=== PATIENT | male | born 1960 | race Caucasian/White ===

== ENCOUNTER 2017-10-25 18:54 | Emergency (ER) | payer OTHER, SELFPAY ==
[2017-10-25 18:59] VITALS: BP 122/73; PULSE 95; RESP 15; TEMP 36.5; O2SAT 95; BMI 28.3
--- NOTE | 2017-10-25 19:30 | DI.CT.S_ITS ---
PROCEDURE: CT FACIAL BONES WO CON INDICATIONS: fall, impact left orbit with swelling and pain TECHNIQUE: Noncontrast 2.5 mm thick axial images acquired from the mandible through the frontal sinuses, with coronal and sagittal reformatting. For radiation dose reduction, the following was used: automated exposure control, adjustment of mA and/or kV according to patient size. COMPARISON: [facility], CT, CT SINUS WITHOUT CONTRAST, 05/29/2017, 14:30. FINDINGS: Image quality: Excellent. Bones and teeth: Orbital weinberg are intact. Sinus weinberg show no fracture or deformity. Nasal bones and septum are intact. Visualized portions of the mandible demonstrate no fractures or subluxation. Zygomatic arches are intact. Pterygoid plates are intact. Visualized portions of the skull base and auditory canals are intact. There is slight irregular appearance of the left sphenoid bone. However, it appears unchanged from prior exam. Sinuses: Mucous retention cyst/polyp is present within the right maxillary sinus. Mastoid air cells are aerated. Soft tissues: Left periorbital soft tissue edema is present. Vascular: Visualized vascular structures appear normal in the absence of contrast. Bony vascular foramina and canals are intact. IMPRESSION: 1. Left periorbital soft tissue edema without visualized fracture. Dictated by: Sherry Carbajal M.D. on 10/25/2017 at 20:12 Approved by: Sherry Carbajal M.D. on 10/25/2017 at 20:15
--- NOTE | 2017-10-25 19:32 | ED.FALL ---
HPI - Fall <[facility] - Last Filed: 10/25/17 22:13> General Chief Complaint: Fall Stated Complaint: FALL HIT LEFT EYE,SWELLING Time Seen by Provider: 10/25/17 19:08 Source: patient and family Mode of arrival: ambulatory Limitations: no limitations History of Present Illness HPI Narrative: Patient states that he tripped and fell and hit his head on the sidewalk. Is worried that he broke a facial bone. States he broke his glasses and has swelling below his left eye. He did not lose consciousness, denies head or neck pain. Does complain of back pain but does not want worked up. Denies any numbness, tingling, confusion or altered mental status. Insists that he tripped and fell and did not pass out. Denies any vision problems. He does not take any blood thinners. Review of Systems <[facility] - Last Filed: 10/25/17 22:13> Review of Systems GENERAL: Denies chills, fatigue, malaise, fever, sweats. HEENT: See HPI RESPIRATORY: Denies dyspnea, cough, wheezing, hemoptysis, sputum. CARDIOVASCULAR: Denies chest pain, palpitations, orthopnea, edema, GASTROINTESTINAL: Denies nausea, vomiting, abdominal pain, diarrhea, constipation, melena. : Denies dysuria, frequency, incontinence, hematuria, urinary retention. MUSCULOSKELETAL: denies weakness, joint pain, or bony pain SKIN: See HPI NEUROLOGIC: Denies weakness, headache, numbness, change in speech, confusion, seizures, incoordination. PSYCHIATRIC: No concerning psychosocial issues. 12 point review of systems is negative except for those stated above Exam <[facility] - Last Filed: 10/25/17 22:13> Narrative Exam Narrative: GENERAL: This is a well-nourished, well-developed patient, in no distress at bedside HEAD: Atraumatic. Normocephalic. No temporal or scalp tenderness. Facial bones stable to palpation. EYES: Pupils equal round and reactive. Extraocular motions intact. No scleral icterus. No injection or drainage. ENT: Nose without bleeding, purulent drainage or septal hematoma. Throat without erythema, tonsillar hypertrophy or exudate. Uvula midline. Airway patent. NECK: Trachea midline. No JVD or lymphadenopathy. Supple, nontender, no meningeal signs. CARDIOVASCULAR: Regular rate and rhythm without murmurs, gallops, or rubs. RESPIRATORY: Clear to auscultation. Breath sounds equal bilaterally. No wheezes, rales, or rhonchi. GASTROINTESTINAL: Abdomen soft, non-tender, nondistended. No hepato-splenomegaly, or palpable masses. No guarding. EXTREMITIES: No clubbing, cyanosis, or edema. No joint tenderness, effusion, or edema noted. BACK: C-spine and spine Nontender without deformity or crepitance. No flank tenderness. Slight tenderness to left paraspinal muscles lumbar region. NEURO: AOx3. SKIN: Abrasion noticed below left eye. Swelling noted and ecchymosis below left eye. Initial Vital Signs Initial Vital Signs: Vital Signs Temperature 97.7 F 10/25/17 18:59 Pulse Rate 95 H 10/25/17 18:59 Respiratory Rate 15 10/25/17 18:59 Blood Pressure 122/73 H 10/25/17 18:59 Pulse Oximetry 95 10/25/17 18:59 <Chey Phelps DO - Last Filed: 10/26/17 03:17> Initial Vital Signs Initial Vital Signs: Vital Signs Temperature 97.7 F 10/25/17 18:59 Pulse Rate 95 H 10/25/17 18:59 Respiratory Rate 15 10/25/17 18:59 Blood Pressure 122/73 H 10/25/17 18:59 Pulse Oximetry 95 10/25/17 18:59 Course <NELLIE Villanueva-BC - Last Filed: 10/25/17 22:13> Hospital Course: Patient presented after a fall. Concern for orbital fracture. CT was ordered to rule out fracture which came back negative. Visual acuity was taken and patient was blind in right eye which she states is normal. Noted to have 20/70 vision in left eye. Patient states this is normal for him and declines further workup. He declined an ice pack but was given p.o. medications for pain. He also declined further workup of his back pain stating ???I know myself. ??? He stated he will follow up with his eye doctor if needed. Orders Ordered: ED Orders 10/25/17 19:30 CT facial bones wo con Stat Vital Signs - 8 hr 10/25/17 21:00 Pulse Rate 57 L Blood Pressure 138/76 H <Chey Phelps DO - Last Filed: 10/26/17 03:17> Orders Ordered: ED Orders 10/25/17 19:30 CT facial bones wo con Stat Vital Signs - 8 hr 10/25/17 21:00 Pulse Rate 57 L Blood Pressure 138/76 H MDM - Fall <NELLIE Villanueva-BC - Last Filed: 10/25/17 22:13> Imaging Data CT- Face: Radiologist's impression: CT Scan Report Signed Patient: Josue Begum MR#: [id number] : 1960 Acct:[id number] Age/Sex: 56 / M Date of Service: 10/25/17 Loc: ED Accession Number: [id number] Procedure: CT facial bones wo con Ordering Provider: Dina Silverio PROCEDURE: CT FACIAL BONES WO CON INDICATIONS: fall, impact left orbit with swelling and pain TECHNIQUE: Noncontrast 2.5 mm thick axial images acquired from the mandible through the frontal sinuses, with coronal and sagittal reformatting. For radiation dose reduction, the following was used: automated exposure control, adjustment of mA and/or kV according to patient size. COMPARISON: [facility], CT, CT SINUS WITHOUT CONTRAST, 05/29/2017, 14:30. FINDINGS: Image quality: Excellent. Bones and teeth: Orbital weinberg are intact. Sinus weinberg show no fracture or deformity. Nasal bones and septum are intact. Visualized portions of the mandible demonstrate no fractures or subluxation. Zygomatic arches are intact. Pterygoid plates are intact. Visualized portions of the skull base and auditory canals are intact. There is slight irregular appearance of the left sphenoid bone. However, it appears unchanged from prior exam. Sinuses: Mucous retention cyst/polyp is present within the right maxillary sinus. Mastoid air cells are aerated. Soft tissues: Left periorbital soft tissue edema is present. Vascular: Visualized vascular structures appear normal in the absence of contrast. Bony vascular foramina and canals are intact. IMPRESSION: 1. Left periorbital soft tissue edema without visualized fracture. Dictated by: Sherry Carbajal M.D. on 10/25/2017 at 20:12 Approved by: Sherry Carbajal M.D. on 10/25/2017 at 20:15 [facility] Narrative Medical decision making narrative: A CT of facial bones showed no fracture. Exam indicates contusion. Patient declined any further workup. States he will follow up with primary care or his admissions specialist as needed. Discharge Plan Departure Patient Disposition: Home, Self-Care Clinical Impression: Fall from ground level, Contusion Discharge Date/Time: 10/25/17 21:08 Interventions: ED Discharge Assessment Last Done: 10/25/17 21:00 Instructions: DI for Eye Contusion Activity Restrictions/Additional Instructions: CT shows no fracture of the facial bones. I suggest ice, [id number]-[id number] pain medications as needed. Follow up with primary care come back to the emergency department if you need to. <Chey Phelps, - Last Filed: 10/26/17 03:17> Cosign ED Attending Sulemaature Attestation: I was immediately available in the department for consultation. Documentation has been reviewed. I agree with assessment and plan.
[2017-10-25 21:00] VITALS: BP 138/76; PULSE 57
== END 2017-10-25 21:08 | disposition home or self-care (01) ==
PROVIDERS: Emergency Provider Nurse Practitioner Family
DX: S05.10XA Contusion of eyeball and orbital tissues, unspecified eye, initial encounter (principal); W19.XXXA Unspecified fall, initial encounter
CPT/HCPCS: 70486; 99283

== ENCOUNTER 2017-11-27 13:09 | Emergency (ER) | payer OTHER, SELFPAY ==
[2017-11-27 13:34] VITALS: BP 155/79; PULSE 70; RESP 16; TEMP 36.6; O2SAT 96; BMI 29.0
--- NOTE | 2017-11-27 14:26 | ED.UPPEXIN ---
HPI - Extremity Injury (Upper) General Chief Complaint: Extremity Injury, Upper Stated Complaint: CAT BITE RIGHT HAND Time Seen by Provider: 11/27/17 14:25 Source: patient Mode of arrival: ambulatory Limitations: no limitations History of Present Illness HPI narrative: 56-year-old male who states that he was both bit and scratched by his personal cat that is up-to-date on its shots. He states that the bite happened yesterday. He states that he woke up today with swelling and redness on the back of his right hand. He came to the emergency department for evaluation. He states that he did clean it out with both soap and water and hydrogen peroxide yesterday. Related Data Home Medications Medication Instructions Recorded Confirmed allopurinol 1 tab PO BID 11/27/17 11/27/17 colchicine 0.6 mg PO BID 11/27/17 11/27/17 Previous Rx's Medication Instructions Recorded doxycycline hyclate 100 mg PO BID #14 tab 11/27/17 Allergies Allergy/AdvReac Type Severity Reaction Status Date / Time aspirin Allergy Verified 11/27/17 13:33 niacin Allergy Verified 11/27/17 13:33 Penicillins Allergy Verified 11/27/17 13:33 Sulfa (Sulfonamide Allergy Verified 11/27/17 13:33 Antibiotics) Review of Systems Constitutional Denies fatigue and Denies fever(s) Musculoskeletal Comments: Pain in the back of the right hand with limited flexion and extension secondary to the pain and swelling Integumentary/Breasts Reports lesions and Reports wounds (One puncture wound on the back of his right) Neurologic Comments: No numbness and tingling right upper extremity Endocrine Denies fatigue Hematologic/Lymphatic Denies easy bleeding and Denies easy bruising [facility] Social History Smoking Status: Never smoker Exam Initial Vital Signs Initial Vital Signs: Vital Signs Temperature 97.9 F 11/27/17 13:34 Pulse Rate 70 11/27/17 13:34 Respiratory Rate 16 11/27/17 13:34 Blood Pressure 155/79 H 11/27/17 13:34 Pulse Oximetry 96 11/27/17 13:34 Cardio Pulses: radial pulses present Skin Other: Patient with 1 wound on the dorsum of his hand radial aspect and another wound at the base of his thumb on the radial aspect of the dorsum of the hand. No active bleeding. No purulence. Does have a surrounding area of erythema that extends just proximally to the wrist and extends distally to just proximal of the MCP joints on the dorsum of the hand. Does not extend to the palmar aspect of the hand. Is warm to the touch. Neuro Other: Sensation intact to light touch right upper extremity Extrem Other: Right elbow unremarkable patient does have full range of motion of his right wrist if he fights to the pain however does have somewhat limited range of motion because of the pain. Course Vital Signs - 8 hr 11/27/17 13:34 11/27/17 14:39 Temperature 97.9 F 97.9 F Pulse Rate 70 74 Respiratory Rate 16 16 Blood Pressure 155/79 H Blood Pressure [Left Arm] 131/78 H Pulse Oximetry 96 97 MDM - Extremity Injury (Upper) MDM Narrative Medical decision making narrative: Patient with a bite from his CT of the back of his right hand. I did discuss the potential for doing an x-ray to evaluate for a foreign body however the patient declined this. Does have signs and symptoms that are concerning for an infection. Patient is allergic to penicillin. Will be placed on doxycycline. He was given care instructions and return precautions. He expressed understanding and agreement with plan Discharge Plan Departure Patient Disposition: Home, Self-Care Clinical Impression: Cat bite of hand Discharge Date/Time: 11/27/17 15:08 Interventions: ED Discharge Assessment Last Done: 11/27/17 15:09 Instructions: DI for Cat Bite Activity Restrictions/Additional Instructions: Take the medication as directed. You can wash your hand like normal. Return to the emergency department for any new symptoms, worsening symptoms, worsening pain, worsening redness, fevers, or any other concerning symptoms Prescriptions: New doxycycline hyclate 100 mg tablet 100 mg PO BID Qty: 14 RF: 0 No Action allopurinol 100 mg tablet 1 tab PO BID RF: 0 colchicine 0.6 mg tablet 0.6 mg PO BID RF: 0
[2017-11-27 14:39] VITALS: BP 131/78; PULSE 74; RESP 16; TEMP 36.6; O2SAT 97
== END 2017-11-27 15:08 | disposition home or self-care (01) ==
PROVIDERS: Emergency Provider Emergency Medicine
DX: S61.451A Open bite of right hand, initial encounter (principal); W55.01XA Bitten by cat, initial encounter
CPT/HCPCS: 99282

== ENCOUNTER → 2018-07-22 11:53 | Outpatient (CLI) | payer OTHER, SELFPAY ==
--- NOTE | 2018-07-22 | DI.MRI.S_ITS ---
PROCEDURE: MR SHOULDER LT WO CON INDICATIONS: TENDNITIS TECHNIQUE: Noncontrast oblique coronal T2 fast spin echo with fat saturation, oblique sagittal T1 spin echo and T2 fast spin echo with fat saturation, axial T1 spin echo and T2 fast spin echo with fat saturation through the shoulder. COMPARISON: None. FINDINGS: Image quality: Excellent. Rotator cuff: There is a low grade, bursal surface tear of the supraspinatus tendon at the humeral attachment (series 8, image 10). The infraspinatus, and subscapularis tendons appear intact throughout. The supraspinatous and infraspinatus tendons are thickened with increased internal signal compatible with moderate tendinosis. Sagittal images demonstrate no muscle atrophy. Bones and bursae: Postsurgical changes consistent with resection of the distal clavicle and acromion noted. No bone marrow contusions or fractures. Moderate to severe acromioclavicular joint osteoarthritic degenerative changes including loss of articular cartilage and subchondral cyst formation noted. Mild synovial thickening noted in the super aspect of the glenohumeral joint compatible with synovitis. Small glenohumeral joint effusion. Small amount of subacromial-subdeltoid bursal fluid is present. Capsule and soft tissues: There is a tear involving the superior and posterior labrum. In the absence of intra-articular contrast, the glenohumeral ligaments appear intact. The long head of the biceps tendon demonstrates normal location. The long head of the biceps tendon is thickened with increased internal signal compatible with moderate tendinosis. The rotator interval appears normal, without fibrosis. The coracohumeral ligament is normal in thickness. IMPRESSION: 1. Low-grade, partial, bursal surface tear of the supraspinous tendon. 2. Moderate supraspinatus, infraspinatus and long head of biceps tendinosis. 3. Tear of the posterior and superior labrum. 4. Glenohumeral joint osteoarthritis. 5. Postsurgical changes. Dictated by: Angi Borja MD, PhD on 07/22/2018 at 16:56 Approved by: Angi Borja MD, PhD on 07/23/2018 at 11:20
== END ==
PROVIDERS: Visit Provider Orthopaedic Surgery
DX: M75.22 Bicipital tendinitis, left shoulder (principal); M75.112 Incomplete rotator cuff tear or rupture of left shoulder, not specified as traumatic; S43.492A Other sprain of left shoulder joint, initial encounter; M19.012 Primary osteoarthritis, left shoulder
CPT/HCPCS: 73221

== ENCOUNTER → 2021-05-16 12:24 | Outpatient (CLI) | payer OTHER, SELFPAY ==
--- NOTE | 2021-05-16 | DI.RAD.S_ITS ---
PROCEDURE: XR LUMBAR SPINE 2-3V INDICATIONS: ELBOW PAIN AND LOW BACK PAIN TECHNIQUE: 3 views of the lumbar spine were acquired. COMPARISON: None. FINDINGS: Bones: 5 [id number] vertebrae are present. There is normal bony alignment. No vertebral body compression fractures. No suspicious bony lesions. Disc space narrowing and sclerotic facet joints noted in the lower lumbar spine. No lytic or blastic lesion. Soft tissues: Overlying bowel gas pattern is normal. No suspicious soft tissue calcifications. The retroperitoneal vascular clips present. IMPRESSION: Lower lumbar spine degenerative disc disease and arthropathy Approved by: De Martinez M.D. on 05/16/2021 at 18:10
--- NOTE | 2021-05-16 | DI.RAD.S_ITS ---
PROCEDURE: XR ELBOW RT MIN 3V INDICATIONS: ELBOW PAIN AND LOW BACK PAIN TECHNIQUE: 3 views of the elbow were acquired. COMPARISON: None. FINDINGS: Bones: No fractures or dislocations. No suspicious bony lesions. Soft tissues: No elbow joint effusion. No suspicious soft tissue calcifications. IMPRESSION: Normal study. Dictated by: Aj Quick M.D. on 05/16/2021 at 15:14 Approved by: Aj Quick M.D. on 05/16/2021 at 15:14
== END ==
PROVIDERS: PCP Internal Medicine; Referring Provider Internal Medicine; Visit Provider Internal Medicine
DX: M51.36 Other intervertebral disc degeneration, lumbar region (principal); M47.816 Spondylosis without myelopathy or radiculopathy, lumbar region; M25.521 Pain in right elbow; M54.50 Low back pain, unspecified
CPT/HCPCS: 72100; 73080

== ENCOUNTER → 2021-08-22 13:48 | Outpatient (CLI) | payer OTHER, SELFPAY ==
--- NOTE | 2021-08-22 | DI.US.S_ITS ---
PROCEDURE: US ABD AORTA ANEURYSM SCREEN INDICATIONS: AAA SCREEN TECHNIQUE: Real time scanning was performed of the aorta and iliac arteries, with image documentation. COMPARISON: [facility], MR, MR LUMBAR SPINE WITH/WITHOUT CONTRAST, 11/21/2019, 14:08. FINDINGS: Aorta: Proximal aortic diameter measures 2 cm. Mid-aorta measures 2 cm. Distal aortic diameter is 2.8 cm. Iliac arteries: Right common iliac artery measures 1.2 cm. Left common iliac artery measures 1.1 cm. IMPRESSION: Distal abdominal aortic ectasia, without herb aneurysm. Dictated by: Delvin Church M.D. on 08/22/2021 at 13:29 Approved by: Delvin Church M.D. on 08/22/2021 at 13:30
== END ==
PROVIDERS: PCP Internal Medicine; Referring Provider Internal Medicine; Visit Provider Internal Medicine
DX: Z13.6 Encounter for screening for cardiovascular disorders (principal); I77.811 Abdominal aortic ectasia
CPT/HCPCS: 76706

== ENCOUNTER → 2023-05-16 12:28 | Outpatient (CLI) | payer OTHER, SELFPAY ==
[2023-05-16 13:11] LABS: Add Manual Diff / Slide Review NO; Basophils Absolute Auto 0 /uL (0-100); Basophils Percent Auto 0.6 % (0-2); Eosinophils Absolute Auto 100 /uL (0-450); Eosinophils Percent Auto 1.8 % (2-4); Hematocrit 43.3 % (41-53); Hemoglobin 14.8 g/dL (13.5-17.5); Lymphocytes Absolute Auto 1800 /uL (1100-4500); Lymphocytes Percent Auto 24.7 % (25-40); Mean Corpuscular HGB Conc 34.3 % (30-36); Mean Corpuscular Volume 93.4 fL (80-100); Monocytes Absolute Auto 600 /uL (0-900); Monocytes Percent Auto 8.4 % (3-14); Neutrophils Absolute Auto 4700 /uL (1500-7000); Neutrophils Percent Auto 64.5 % (50-75); Platelet Count 200 X10^3/uL (150-400); Red Blood Cell Count 4.63 X10^6/uL (4.5-5.9); Red Cell Distribution Width 14.7 % (11.6-14.8); White Blood Cell Count 7.3 X10^3/uL (4.5-11.0)
[2023-05-16 13:18] LABS: Hemoglobin A1C% w Est Avg Glu 5.5 % (4.0-6.0)
[2023-05-16 13:36] LABS: BUN Creatinine Ratio 18.4 (6-22); Blood Urea Nitrogen 19 mg/dL (9-20); Calcium 9.7 mg/dL (8.4-10.2); Carbon Dioxide 28 mmol/L (22-32); Chloride 106 mmol/L (98-107); Estimated Glomerular Filt Rate > 60 mL/min (>60); Glucose 104 mg/dL (80-110); HEMOLYSIS < 15 (0-50); Potassium 3.9 mmol/L (3.4-5.1); Sodium 141 mmol/L (137-145)
== END ==
PROVIDERS: PCP Internal Medicine; Referring Provider Orthopaedic Surgery Foot and Ankle Surgery; Visit Provider Orthopaedic Surgery Foot and Ankle Surgery
DX: Z01.818 Encounter for other preprocedural examination (principal); R73.9 Hyperglycemia, unspecified; Z01.812 Encounter for preprocedural laboratory examination
CPT/HCPCS: 36415; 80048; 83036; 85025; 93005; 93010

== ENCOUNTER 2023-07-11 09:17 | Day surgery (SDC) | payer OTHER, SELFPAY ==
[2023-07-03 08:40] VITALS: BMI 26.6
[2023-07-11 09:38] VITALS: BP 163/81; PULSE 54; RESP 16; TEMP 36.4; O2SAT 96; BMI 26.6
[2023-07-11] MEDS: ACETAMINOPHEN 325 MG TABLET 1000 MG PO (10:00)
[2023-07-11] MEDS: LACTATED RINGERS 1,000 ML 42 ML IV (10:00)
--- NOTE | 2023-07-11 10:50 | PM.PREOP ---
Pre-operative Note Interval Note History & Physical reviewed/Exam performed by Physician: Yes Changes to H&P: No
--- NOTE | 2023-07-11 11:02 | P.OP_ITS ---
Operative Date/Time/Diagnoses Date of procedure: 07/11/23 Time of procedure: 11:30 Pre-op diagnosis: Right knee arthritis Post-op diagnosis: same Procedure & Clinicians Procedure: Total knee arthroplasty, right CPT code 01771 Robotic assisted knee replacement, computer navigation [id number] During the operation, the services of a physician surgical forceps fabricator were medically indicated and necessary to provide the exposure of the operative site for the surgical procedure and to maintain the limb in a proper position to carry out the operation safely and efficiently. Without a qualified commercial lines account assistant being present this would extended the operative procedure and made the procedure technically more difficult to perform. Same procedure as scheduled: Yes Indications: The patient is a 62-year-old male with end-stage yjqt-[id number]-dvch knee arthritis. The patient has a significant right knee varus knee arthritis. They have failed conservative treatment with activity modifications, injections, physical therapy and bracing. They has been indicated for total knee replacement. The risks and benefits of the procedure have been discussed with the patient even opportunity to ask questions. The risks of surgery include but are not limited to infection, fracture, loosening, persistence of pain, damage to nerves and blood vessels, need for additional procedures, DVT, PE, cardiopulmonary complications and . The patient expressed a thorough understanding of the risks and benefits of surgery and has elected to proceed. Consent was signed in the office. Surgeon: Fanny Bender Insulation Inspector: Daiana Carbaajl Anesthesia Type: General, Peripheral nerve block and Local Operative Notes Findings: End-stage varus knee arthritis, right Closure Type: primary Specimen(s): none sent Prosthetic devices, grafts, tissues, transplants, or devices: Rae and Nephew journey II BCS total knee arthroplasty Femur Tibia Poly Patella Procedure in detail: Patient was seen in the preoperative area where the patient and site of surgery were identified in the operative knee was marked informed consent confirmed. This was the right knee. Patient received the appropriate preoperative antibiotics this was 900 mg of clindamycin for severe penicillin allergy. And other preoperative medications and was taken to the operating room placed on operating table in the supine position. Spinal anesthetic were administered. The operative extremity was then prepped and draped in the standard sterile fashion with a nonsterile tourniquet high on the thigh. Patient was placed on the green foam bolsters. A lateral post was placed at the level of the proximal thigh /trochanter area as a lateral post. Formal time-out procedure was performed confirming the patient's side and site of surgery and administration of appropriate preoperative antibiotics and implants were in the room accounted for. All were in agreement. Patient received a preoperative dose of tranexamic acid and then a 2nd dose at tourniquet release Patient was prepped and draped in the standard sterile fashion and the foot was placed into the leg stephen. This was taken into high flexion and the incision was marked out over the anterior knee to the level of the medial tubercle tubercle. The Esmarch was then used for exsanguination and the tourniquet was inflated to 250 mmHg. Was made through the skin and subcutaneous tissue in high flexion this was then brought down into 30? of flexion for the medial parapatellar arthrotomy. A marker pen was used to nikhil the arthrotomy site for later repair. Joint fluid was evacuated. The anterior osteophytes and soft tissues were removed. Routine medial release was initially made along the medial proximal tibia with Bovie. The patella was 1st cut using the saw sized and prepped and then subluxed throughout the case and protected. The leg was then taken into extension and the patella was everted and the patella was cut to accommodate the patellar button. This was sized to a XX mm button for a XX mm thickness to recreate the original dimensions of the patella. Poly was removed and the protector replaced and the patella was subluxed and the knee was taken back up into flexion and attention was returned to the femur. Then the rotational landmarks of Whitesides line and the trans epicondylar axis were marked on the femur with electrocautery. ACL and PCL were released. Then the Cori robotic pins were placed into the femur and tibia and the race set up. Landmarks were established and the robotic planning was commenced. Plan was developed and improved and adjusted as necessary to create a balanced knee 1-2 mm throughout the arc of motion. Plan was satisfactory the bur was used to remove the distal femur then the 5 in 1 cutting block was applied complete the femur cuts. Attention was then turned to the tibia and the tibial resection was made in accordance with the robotic planning. The trials were placed. And the femoral notch was cut a standard fashion using Reamer then slap hammer. The knee was trialed and the checked. Knee was balanced in flexion extension. Range of motion 0-135 degrees was obtained. The rotation femoral trial was marked Bovie on the bone and checked with a long kevin. The tibia was then finished with a drill and flange cut and then The trial implants were removed. Then in extension the posterior capsule was injected with a mixture of 40 mL of 0.25% Marcaine and 20 mL of Exparel care to avoid excessive injection posterior laterally. The remainder of this was saved for the capsule and subcutaneous tissue and placed during cement curing. The wound and bone was irrigated with pulsatile lavage. This was then dried with a sponge. The components were verified and opened and the cement was mixed. Cement was applied to the components and then to the bone then the tibia was cemented in place 1st followed by the femur then the patella. Excess cement was removed. With care looking around the back of the knee. Remainder of the injection was injected around the capsule. trial poly was placed back in the leg was placed into extension for the patellar cementing. After this was cured approximately 15 minutes later and the dilute Betadine solution was placed for at least 3 minutes in the wound this was then irrigated out and the final poly was placed. This was a XX mm poly. The tourniquet was released hemostasis was achieved. Final 1g of tranexamic acid was given IV at the time of tourniquet release. The capsule was closed with 1. Ethibond suture. Followed by a running Quill stitch. Computer navigation robotic tracker sites were closed with nylon. Subcutaneous layer was closed with 3-0 Vicryl suture. Skin was closed with a running V lock suture Stratafix Monocryl type suture and Dermabond. An Aquacel dressing was placed . An Raza wrap was applied. Anesthetic was terminated the patient was woken from anesthesia and taken to recovery room in good condition. There no immediate complications from this procedure. The patient will be maintained on a standard total knee replacement protocol with weight-bearing as tolerated.
--- NOTE | 2023-07-11 11:12 | SUR.PREOP ---
Block start time [1120] . Monitoring initiated and maintained throughout procedure. Oxygen and medications given per anesthesiologist instructions. Patient remained stable throughout procedure, no adverse reactions noted. Block end time [1123].
== END 2023-07-11 13:22 | disposition home or self-care (01) ==
LOC: OR 09:18 → AC 09:21
PROVIDERS: PCP Internal Medicine; Referring Provider Internal Medicine; Visit Provider Orthopaedic Surgery Foot and Ankle Surgery
DX: M17.11 Unilateral primary osteoarthritis, right knee (principal); Z53.09 Procedure and treatment not carried out because of other contraindication
CPT/HCPCS: 27447; 64450; J2250; J2704; J3010

== ENCOUNTER 2023-08-01 08:51 | Day surgery (SDC) | payer OTHER, SELFPAY ==
[2023-08-01] VITALS (16 sets, daily range): BP systolic 98–155; BP diastolic 46–91; PULSE 60–97; RESP 10–18; TEMP 35.9–37.1; O2SAT 90–96; BMI 26.6
--- NOTE | 2023-08-01 08:47 | DI.RAD.S_ITS ---
PROCEDURE: XR KNEE RT 1TO2V INDICATIONS: TKA TECHNIQUE: 2 view(s) of the knee acquired. COMPARISON: None. FINDINGS: Bones: Patient is status post knee joint arthroplasty. Hardware components are in expected positions. Visualized bony structures are intact. Soft tissues: Overlying postoperative changes are noted. IMPRESSION: Expected post-operative appearance of a knee arthroplasty. Dictated by: Marcella Gamez M.D. on 08/01/2023 at 14:47 Approved by: Marcella Gamez M.D. on 08/01/2023 at 14:47
[2023-08-01] MEDS: ACETAMINOPHEN 325 MG TABLET 975 MG PO (09:25)
[2023-08-01] MEDS: LACTATED RINGERS 1,000 ML 42 ML IV ×2 (09:25→12:22)
[2023-08-01] MEDS: ALBUTEROL/IPRATROPIUM 3 ML AMPUL INH (10:06)
--- NOTE | 2023-08-01 10:34 | P.HP_ITS ---
History of Present Illness History of Present Illness Date Patient Seen: 08/01/23 Time Patient Seen: 10:34 Chief complaint: Right TKA *OPB* Narrative: The patient is a 62-year-old male that has end-stage right knee arthritis. He is failed conservative treatment with bracing, physical therapy injections and oral medications. He is indicated for total knee arthroplasty and presents for total knee arthroplasty today. He does not have diabetes he does not smoke does thinners 7 allergy to aspirin so he is planned for postoperative DVT prophylaxis with Eliquis. He does have a history of asthma [facility] Medical History Embryonal carcinoma Embryonal carcinoma PTSD (post-traumatic stress disorder) Easy bruisability Psoriasis Osteoarthritis Enlarged prostate Testicular cancer (~1978) HLD (hyperlipidemia) HTN (hypertension) KELLY (obstructive sleep apnea) Asthma Surgical History Hx of shoulder surgery H/O nasal septoplasty Hx of discectomy Hx of shoulder surgery History of repair of left rotator cuff History of repair of right rotator cuff Hx of tonsillectomy S/P radical unilateral orchiectomy (~1978) Hx of bilateral cataract extraction Social History household members: spouse Smoking Status: Former smoker alcohol intake: former Meds Home Medications and Allergies Home Medications Medication Instructions Recorded Confirmed Type allopurinol 100 mg tablet 1 tab PO BID PRN Gout 11/27/17 08/01/23 History colchicine 0.6 mg tablet 0.6 mg PO BID PRN Gout Flare 11/27/17 08/01/23 History amlodipine 5 mg tablet 5 mg PO DAILY 07/03/23 08/01/23 History atorvastatin 10 mg tablet 10 mg PO BEDTIME 07/03/23 08/01/23 History lisinopril 20 mg tablet 20 mg PO DAILY 07/03/23 08/01/23 History tamsulosin 0.4 mg capsule 0.4 mg PO BEDTIME 07/03/23 08/01/23 History albuterol 90 mcg/actuation aerosol See Rx Instructions .Route 07/11/23 08/01/23 History inhaler .COMPLEX PRN asthma Allergies Allergy/AdvReac Type Severity Reaction Status Date / Time aspirin Allergy Severe Anaphylaxis Verified 07/11/23 09:55 Penicillins Allergy Severe Anaphylaxis Verified 07/11/23 09:55 Sulfa (Sulfonamide Allergy Severe Anaphylaxis Verified 07/11/23 09:55 Antibiotics) niacin AdvReac Severe Red, Verified 07/11/23 09:55 flushing, I just cook NSAIDS (Non-Steroidal AdvReac Severe Gastrointestinal Verified 07/11/23 09:55 Anti-Inflamma Upset Review of Systems Review of Systems ROS: Yes All systems reviewed with the patient and are negative except as otherwise documented Exam Vital Signs (past 8 hours): - 08/01/23 09:32 Temperature 97.9 F Pulse Rate 61 Respiratory Rate 16 Blood Pressure 139/81 Pulse Oximetry 96 Oxygen Delivery Method Room Air Oxygen Delivery Method Room Air Narrative Exam Narrative: The patient is alert oriented no acute distress Heart regular rate and rhythm Lungs clear to auscultation Right lower extremity demonstrates varus alignment with tenderness along the medial compartment range of motion 2-125. Grossly stable to varus and valgus stress test good quadriceps tone. No erythema no effusion. Dorsiflexion plantar flexion 5/5. Calf is soft. Palpable dorsalis pedis pulse. Assessment & Plan Assessment and plan (1) Arthritis of knee, right: Status: Acute Plan Patient has end-stage right knee arthritis. He is failed conservative treatment is indicated for a total knee arthroplasty. The risks benefits and alternatives to the procedure were discussed with the patient in detail and he is elected to proceed. Preoperative laboratories and EKG have been reviewed and are appropriate. He will utilize Eliquis for postoperative DVT prophylaxis. He has normal kidney function. He is received prescriptions for oxycodone, Zofran, MiraLax and Eliquis Informed consent was signed. Time Spent With Patient Time with patient: less than 30 minutes Quality VTE Deep Vein Thrombosis/Pulmonary Embolism Present on Admission: No
--- NOTE | 2023-08-01 10:48 | SUR.PREOP ---
Block start time [1047] . Monitoring initiated and maintained throughout procedure. Oxygen and medications given per anesthesiologist instructions. Patient remained stable throughout procedure, no adverse reactions noted. Block end time [1051].
[2023-08-01] MEDS: CEFAZOLIN 2 GM/100 ML PREMIX 100 ML IV ×2 (11:02→18:45)
[2023-08-01] MEDS: TRANEXAMIC ACID 1,000 MG VIAL 1000 MG INJ (11:25)
--- NOTE | 2023-08-01 11:34 | SUR.OPER ---
Supine on padded OR bed. Pillow under head, arms secured on padded armboards <90 degree abduction. Safety belt across torso. Non-operative leg secured with tape over blanket over lower leg. Operative leg secured in SHERWIN positioner. Foam padded brace at thigh of operative leg.
[2023-08-01] MEDS: BUPIVACAINE 0.25% (PF) 60 ML, EPINEPHrine 0.3 MG INJ (12:12)
[2023-08-01] MEDS: BUPIVACAINE LIPOSOME 266 MG/20 ML VIAL INJ (12:59)
--- NOTE | 2023-08-01 13:36 | P.OP_ITS ---
Operative Date/Time/Diagnoses Date of procedure: 08/01/23 Time of procedure: 11:30 Pre-op diagnosis: Right knee arthritis M17.11 Post-op diagnosis: same Procedure & Clinicians Procedure: Total knee arthroplasty, right CPT code 77803 Robotic assisted knee replacement surgery S2900 Imageless navigation for knee replacement 28281 Same procedure as scheduled: Yes Indications: The patient is a 62-year-old with end-stage [id number] knee arthritis. The patient has a varus knee arthritis. They have failed conservative treatment with activity modifications, injections, physical therapy and bracing. They has been indicated for total knee replacement. The risks and benefits of the procedure have been discussed with the patient even opportunity to ask questions. The risks of surgery include but are not limited to infection, malunion, nonunion, fracture, loosening, persistence of pain, damage to nerves and blood vessels, need for additional procedures, DVT, PE, cardiopulmonary complications and . The patient expressed a thorough understanding of the risks and benefits of surgery and has elected to proceed. Consent was signed in the office. During the operation the services of physician surgical nurse practitioner were medically indicated and necessary to provide the exposure of the operative site for the surgical procedure and to maintain the limb in a proper position to carry out the procedure safely and efficiently. Without a qualified assistant cross country coach being present this would extend the operative procedure and would have made the procedure more technically difficult to perform. The surgical nurse practitioner was medically necessary for the proper positioning, retraction and manipulation of the limb, proper exposure, and manipulation of the tissue for implantation implants and closure. Surgeon: Fanny Bender Shuffle Board Operator: Moustapha Lu Anesthesia Type: General, Peripheral nerve block and Local Operative Notes Findings: Varus knee arthritis full-thickness cartilage loss medial compartment degenerative meniscal tears and tricompartmental osteophytes. Grade 3 cartilage wear patellofemoral joint and lateral compartment Closure Type: primary Prosthetic devices, grafts, tissues, transplants, or devices: Rae and [employer]hew journey 2 bCS Femur size 7 cobalt chromium Tibia size 6 Patella 35 x 7.5 Poly 9 mm Estimated Blood Loss (mL): 100 Blood products transfused: none Tourniquet time (min): 80 Procedure in detail: Patient was seen in the preoperative area where the patient and site of surgery were identified in the operative knee was marked informed consent confirmed. This was the right knee. Patient received the appropriate preoperative antibiotics this was 2 g of Ancef. A regional block was placed by the anesthesia team for postoperative pain control. And other preoperative medications and was taken to the operating room placed on operating table in the supine position. Spinal anesthetic were administered. The operative extremity was then prepped and draped in the standard sterile fashion with a nonsterile tourniquet high on the thigh. Patient was placed on the green foam bolsters. A lateral post was placed at the level of the proximal thigh /trochanter area as a lateral post. Formal time-out procedure was performed confirming the patient's side and site of surgery and administration of appropriate preoperative antibiotics and implants were in the room accounted for. All were in agreement. Patient received a preoperative dose of tranexamic acid and then a 2nd dose at tourniquet release Patient was prepped and draped in the standard sterile fashion and the foot was placed into the leg stephen. This was taken into high flexion and the incision was marked out over the anterior knee to the level of the medial tubercle tubercle. The Esmarch was then used for exsanguination and the tourniquet was inflated to 250 mmHg. Was made through the skin and subcutaneous tissue in high flexion this was then brought down into 30? of flexion for the medial p arapatellar arthrotomy. A marker pen was used to nikhil the arthrotomy site for later repair. Joint fluid was evacuated. The anterior osteophytes and soft tissues were removed. Routine medial release was initially made along the medial proximal tibia with Bovie. The patella was 1st cut using the saw sized and prepped and then subluxed throughout the case and protected. The leg was then taken into extension and the patella was everted and the patella was cut to accommodate the patellar button. This was sized to a 35 mm button for a 7.5 mm thickness to recreate the original dimensions of the patella. Poly was removed and the protector replaced and the patella was subluxed and the knee was taken back up into flexion and attention was returned to the femur. Then the rotational landmarks of Whitesides line and the trans epicondylar axis were marked on the femur with electrocautery. ACL and PCL were released. Then the Cori robotic pins were placed into the femur and tibia and the race set up. Landmarks were established and the robotic planning was commenced. Plan was developed and improved and adjusted as necessary to create a balanced knee. Starting alignment with 2? of varus. This was corrected to 0? varus with the ligament balancing and utilizing a 4 degree external rotation of the femur. Incising adjustments to avoid notching. And obtaining flexion and extension g aps 1-2 mm Once the plan was satisfactory the bur was used to remove the distal femur then the 5 in 1 cutting block was applied complete the femur cuts. Attention was then turned to the tibia and the tibial resection was made in accordance with the robotic planning. The trials were placed. And the femoral notch was cut a standard fashion using Reamer then slap hammer. The knee was trialed and the checked. Knee was balanced in flexion extension. Planned alignment was obtained planned gap balance achieved. Range of motion 0-135 degrees was obtained. The rotation femoral trial was marked Bovie on the bone and checked with a long kevin. The tibia was then finished with a drill and flange cut and then The trial implants were removed. Then in extension the posterior capsule was injected with a mixture of 40 mL of 0.25% Marcaine and 20 mL of Exparel care to avoid excessive injection posterior laterally. The remainder of this was saved for the capsule and subcutaneous tissue and placed during cement curing. The wound and bone was irrigated with pulsatile lavage. This was then dried with a sponge. The components were verified and opened and the cement was mixed. Final components were selected size 7 femur, size 6 tibia 35 x 7 .5 patella Cement was applied to the components and then to the bone then the tibia was cemented in place 1st followed by the femur then the patella. Excess cement was removed. With care looking around the back of the knee. Remainder of the injection was injected around the capsule. trial poly was placed back in the leg was placed into extension for the patellar cementing. After this was cured approximately 15 minutes later and the dilute Betadine solution was placed for at least 3 minutes in the wound this was then irrigated out and the final poly was placed. This was a 9 mm poly. The tourniquet was released hemostasis was achieved. Final 1g of tranexamic acid was given IV at the time of tourniquet release. The capsule was closed with 1. Ethibond suture. Followed by a running Quill stitch. Subcutaneous layer was closed with 3-0 Vicryl suture. Skin was closed with a running V lock suture Stratafix Monocryl type suture and Dermabond. An Aquacel dressing was placed . An Raza wrap was applied. Anesthetic was terminated the patient was woken from anesthesia and taken to recovery room in good condition. There no immediate complications from this procedure. The patient will be maintained on a standard total knee replacement protocol with weight-bearing as tolerated. Complications: none Post-operative Condition: stable Disposition: PACU Plan for aftercare: Full weight-bearing, range of motion knee immediately. We will use Eliquis for DVT prophylaxis for 12 days. Follow up in 2 weeks for wound check with physician assistant cross country coach then in 6 weeks with the operating surgeon for new x-rays. We will start physical therapy outpatient in 1 week.
[2023-08-01] MEDS: LACTATED RINGERS 1,000 ML 100 ML IV (14:34)
[2023-08-01] MEDS: OXYCODONE IR 5 MG TABLET PO (14:38)
--- NOTE | 2023-08-01 15:18 | PC.NURSE ---
Pt arrived from PACU at 1425, VSS on 3L NC, c/o 5/10 pain to R knee, medicated per AUG. Raza wrap dressing to R knee c/d/i. CMS +, no n\t. Lung sounds CTA, bowel sounds hypoactive. Pt oriented to room and call light. Bed in low position, call light within reach, SCDs on, bed alarm activated.
[2023-08-01] MEDS: ONDANSETRON 4 MG/2 ML INJ IV (15:29)
[2023-08-01] MEDS: ACETAMINOPHEN 325 MG TABLET 650 MG PO ×2 (15:44→20:46)
--- NOTE | 2023-08-01 15:55 | PT.IIE ---
Current Diagnoses Unilateral primary osteoarthritis, right knee (08/01/23) Surgery Performed Operation Date: 08/01/23 10:45 Actual Procedures p Total Knee Arthroplasty - Robot(Right) - Fanny Bender MD Surgical History (Last Reviewed 08/01/23 @ 10:34 by Fanny Bender MD) H/O nasal septoplasty History of repair of left rotator cuff History of repair of right rotator cuff Hx of bilateral cataract extraction Hx of discectomy Hx of shoulder surgery Hx of shoulder surgery Hx of tonsillectomy S/P radical unilateral orchiectomy (~1978) Medical History (Last Reviewed 08/01/23 @ 10:34 by Fanny Bender MD) Asthma Easy bruisability Embryonal carcinoma Embryonal carcinoma Enlarged prostate HLD (hyperlipidemia) HTN (hypertension) KELLY (obstructive sleep apnea) Osteoarthritis Psoriasis PTSD (post-traumatic stress disorder) Testicular cancer (~1978) Physical Therapy Inpatient Evaluation/Re-Eval M1 PT/OT-IP Prior Functional Status Start: 08/01/23 16:43 Freq: NEEDED Status: Active Protocol: Document 08/01/23 15:55 AB (Rec: 08/01/23 16:56 AB [id number]) Medical Review Prior Functional Status Medical History Reviewed Yes Communication able to make needs known Mobility and Gait pt stated that he was independent with all mobities and ambulation without AD Social History Household Members spouse Living Arrangements House Number of Floors (Floors) One Floor Number of Stairs To Enter/Railing? 1 step to enter Home Environment High Toilet,Tub/Shower Home Equipment Front Wheel Walker,Four Wheel Walker,Straight Cane M2 PT-IP Current Condition Start: 08/01/23 16:43 Freq: NEEDED Status: Active Protocol: Document 08/01/23 15:55 AB (Rec: 08/01/23 16:56 AB [id number]) Physical Therapy Current Condition Current Condition Evaluation Date 08/01/23 Treatment Diagnosis s/p R TKA; difficulty in walking Onset Date 08/01/23 M3 PT-IP Subjective Start: 08/01/23 16:43 Freq: NEEDED Status: Active Protocol: Document 08/01/23 15:55 AB (Rec: 08/01/23 16:56 AB [id number]) Subjective Physical Therapy Visit Type Type Initial Evaluation Visit Start Time 15:55 Visit Stop Time 16:45 Number of ELECTRIC SERVICEMAN Visits 0 Physical Therapy Visit Comments Patient Comments agreeable to do PT Therapy Pain Assessment Pain When Pain Assessed At Rest Pain Present Pain Present Pain Reported Location Right Knee Intensity 5 Scale Used Numeric (0 - 10) Pain Behaviors Guarding Pain Management Techniques Distraction,Modification of Treatment,Re-positioning, Timing of Activity with Medications M4 PT-IP Mobility and Gait Start: 08/01/23 16:43 Freq: NEEDED Status: Active Protocol: Document 08/01/23 15:55 AB (Rec: 08/01/23 16:56 AB [id number]) PT-Bed Mobility Assessment Supine to Sit Supine to Sit Standby Assistance PT-Transfer Assessment Sit to and From Stand Sit to and from Stand Contact Guard Assistance, Minimal Assistance,1 Person Assistance,Use of Upper Extremities Equipment Transfer Assistive Device Gait Belt,Front Wheeled Walker Orthotic/Prosthetic Devices or Brace: No Transfers Transfer Destination Toilet Transfer Technique ambulated Transfer Ability Level of Assist Contact Guard Assistance, Minimal Assistance,1 Person Assistance,Use of Upper Extremities Comments Mobility Comments pt supine in bed and spouse in room. pt agreeable to do PT. obtained PLOF and home setup. post-op folder provided and reviewed contents. educated on HEP. BP in supine: 128/73. O2 sat with 1L/min O2: 95-97% . O2 sat at RA varies from 87 -95%. increases with deep breathing. spouse stated that pt has asthma and KELLY. pt completed supine to sit SBA . able to sit on EOB SBA. O2 with 1L/min with activity: 98 -100%. pt completed sit to stand min A and cues and ambulated in room ~ 20 ft CGA to min A. increase unsteadiness towards end of ambulation and requires cues for R quads activation. pt sat on EOB. requested to use the toilet. completed sit to stand from EOB CGA and ambulated to the toilet using FWW CGA to min A. pt wanting to use the toilet for awhile. call light positioned next to pt and instructed to call for assistance when ready. informed nurse. caregiver training set up for tomorrow at 9 am with spouse. Gait Assessment Gait Gait Assistance Required: Contact Guard Assist,Minimum Assistance Distance (Feet) 20 Able to Maintain Weight Bearing Status Yes During Gait Assistive Devices Assistive Device Gait Belt,Front Wheeled Walker Orthotic/Prosthetic Devices or Brace: No Gait Deviations General Gait Pattern Antalgic,Decreased Stride Length,Decreased Feet Clearance Factors Limiting Gait Function Factors Limiting Gait Function Decreased Activity Tolerance, Decreased Strength,Difficulty Following Directions,Limited Range of Motion,Pain,Poor Balance,Poor Safety Awareness, Respiratory Distress PT-Balance Assessment Sitting Balance and Reactions Dynamic Sitting Balance Ability Good Standing Balance and Reactions Static Standing Balance Ability Fair Dynamic Standing Balance Ability Fair Device Used FWW M5 PT-IP Objective Assessments Start: 08/01/23 16:43 Freq: NEEDED Status: Active Protocol: Document 08/01/23 15:55 AB (Rec: 08/01/23 16:56 AB [id number]) Orientation Orientation/Cognition Level of Alertness Alert Orientation Name,Age Safety Awareness Decreased Safety Awareness Memory Description No Deficits Noted Comments pt alert but sleepy Gross Range of Motion Lower Extremity ROM Assessment Right Impaired Impairments R knee flexion: ~ 100 deg R knee extension: ~ 20 deg less to 0 Strength Lower Extremity Strength Assessment Left Impaired Hip 4/5 Knee 3+/5 Coordination Assessment Gross Coordination Gross Coordination WNL Sensation Assessment Sensation Gross Sensation WNL Muscle Tone Muscle Tone WNL Yes M6 PT-IP Treatment Start: 08/01/23 16:43 Freq: NEEDED Status: Active Protocol: Document 08/01/23 15:55 AB (Rec: 08/01/23 16:56 AB [id number]) Physical Therapy Treatment Exercises Exercises Heel Slides Education Education Provided Precautions,Weight Bearing Status,Post-Op Packet,Safety M7 PT-IP Assessment and Plan Start: 08/01/23 16:43 Freq: NEEDED Status: Active Protocol: Document 08/01/23 15:55 AB (Rec: 08/01/23 16:56 AB [id number]) PT Summary Assessment and Plan Potential Rehabilitation Potential Fair Status of Condition at Evaluation Evolving Summary Impairments Pain,ROM,Strength,Balance, Coordination,Sensation,Tone, Cognition,Bed Mobility, Transfers,Gait,Activity Tolerance Assessment Summary pt is a 62 y/o M s/p R TKA POD 0. pt is WBAT on RLE. pt requiring CGA to min A with transfers and ambulation using FWW. pt O2 sat at RA inconsistent from 87% to 95% with cues for deep breathing. pt is alert but is sleepy affecting safety awareness. caregiver training set up for tomorrow at 9 am. will continue to assess progress. Goals Bed Mobility Goal Independent Transfer Goal Independent,Front Wheeled Walker Gait Goal Independent,Front Wheel Walker Gait Distance 200 Other Goals improve transfers and ambulation using LRAD ~ 300 ft mod I up/down 1 step using FWW/LRAD mod I Days to Meet Goals 5 Frequency of Treatment Frequency Of Treatment Twice a Day Treatment Plan Physical Therapy Treatment Plan Bed Mobility Training,Transfer Training,Gait Training, Therapeutic Exercise,Balance Retraining,Post Op Education, Discharge Planning,Hot or Cold Pack,Neuromuscular Re-ed, Coordination Retraining,Manual Therapy Weight Bearing Status Weight Bearing Status Weight Bear as Tolerated Allowed Weight Bearing Amount (enter % RLE WBAT or #) (%) Recommendations To Nursing Amount of Assist Needed 1 Person Assist Discharge Recommendations PT Discharge Recommendations Home with Assistance, Outpatient PT Transportation Needs at Discharge Private Vehicle
[2023-08-01] MEDS: OXYCODONE IR 10 MG TABLET PO (19:45)
[2023-08-01] MEDS: DOCUSATE 100 MG CAPSULE PO (20:44)
[2023-08-01] MEDS: ATORVASTATIN 20 MG TABLET 10 MG PO (20:44)
[2023-08-01] MEDS: CALCIUM CARBONATE 500 MG TAB PO (20:47)
[2023-08-02] MEDS: OXYCODONE IR 10 MG TABLET PO ×2 (00:16→10:24)
[2023-08-02] MEDS: CEFAZOLIN 2 GM/100 ML PREMIX 100 ML IV (02:06)
[2023-08-02] MEDS: ACETAMINOPHEN 325 MG TABLET 650 MG PO ×2 (02:06→08:44)
[2023-08-02] MEDS: LACTATED RINGERS 1,000 ML 100 ML IV (04:38)
--- NOTE | 2023-08-02 05:17 | PC.NURSE ---
cnc machinist 2nd shift RN note pt A&O x4, up with SBY assist with walker, c/o pain to R knee post surgery, VSS, afebrile, PPPx4, CMS intact, lungs clear O2 sats >92% on RA, abd soft with BS, BM overnight, pt c/o of fullness and pain to his bladder, unable to fully empty when voiding, PV residuals >500cc, straight cath done at 2130 for large amt clear yellow urine, at 0300 pt still unable to void, PVR >600, pt requested to have a catheter placed for the night so he can sleep, r/c placed and large amt urine emptied, prn pain meds with effect, dsg and cristhian wrap to R knee intact, pt doing exercises in bed, c/o acid reflux, called and order for TUMs with effect, call cam within reach, bed alarm on
[2023-08-02 05:48] LABS: Hematocrit 40.1 % (41-53); Hemoglobin 13.6 g/dL (13.5-17.5)
[2023-08-02] MEDS: TAMSULOSIN 0.4 MG CAPSULE PO (07:48)
--- NOTE | 2023-08-02 07:57 | P.DS_ITS ---
History of Present Illness History of Present Illness Chief complaint: Right TKA *OPB* Narrative: Josue is a pleasant 62-year-old male who is postop day #1 s/p right total knee arthroplasty by Dr. Bender. Patient reports overall he is feeling well and looking forward to being discharged to home today. Reports he was able to get up and walk around the hallways yesterday and pain has been well controlled with the oral pain medication. Patient lives at home with family who are willing and able to aid in his recovery during the immediate postop period. No stairs at home. Patient was unable to urinate last night and was therefore straight cathed. He then was able to void a small amount but his PVD was greater than 600 and therefore a Peña catheter was placed and is still in place now. Has outpatient physical therapy scheduled with our [address] [place] [address] office. His postop prescriptions at home already. Denies chest pain, shortness of breath, nausea, vomiting, fever, chills. Operative Date/Time/Diagnoses Date of procedure: 08/01/23 Time of procedure: 11:30 Pre-op diagnosis: Right knee arthritis M17.11 Post-op diagnosis: same Procedure & Clinicians Procedure: Total knee arthroplasty, right CPT code 72400 Robotic assisted knee replacement surgery [id number] Imageless navigation for knee replacement [id number] Same procedure as scheduled: Yes Surgeon: Fanny Bender Substance Addiction Coordinator: Moustapha Lu Anesthesia Type: General, Peripheral nerve block and Local Discharge Providers Provider Discharge Date: 08/02/23 Primary care physician: Yue Mena MD Consults: 08/01/23 08:47 Consult to Anesthesiology Routine Comment: Consulting Provider: Anesthesiologist Reason for consultation: Regional block for post operative pain control Has provider been notified: No 08/01/23 14:24 Consult to Discharge Planning Routine Comment: Consult to Occupational Therapy Evaluate & Treat Comment: Physician Instructions: Evaluate and treat Consult to Physical Therapy Evaluate & Treat Comment: Physician Instructions: postop TKA protocol Discharge provider: Daiana Carbajal PA-C Summary Hospital Course Discharge Diagnosis: Right knee osteoarthritis s/P right total knee arthroplasty Hospital Course: Hospital course complicated by acute urinary retention s/p orthopedic procedure Exam Vital Signs (past 8 hours): Oxygen Delivery Method Room Air Oxygen Flow Rate 0 Narrative Exam Narrative: Patient is sleeping comfortably when I entered into the room today but was easily aroused. Const General: cooperative, healthy appearing and comfortable Resp Effort & Inspection: normal respiratory effort and able to speak in complete sentences Cardio Rate: regular rate Skin Other: Clean and dry Aquacel dressing over the right anterior knee. Raza bandage wrapped around Aquacel. SCDs in place. Neuro General: patient alert, patient awake and patient oriented x3 Other: Sensation intact throughout bilateral lower extremities. Extrem Other: Grossly normal alignment, moderate right knee effusion. 5/5 strength with DF, PF, EHL. Right Knee AROM 3-90. Sensation intact throughout the right lower extremity. Brisk capillary refill. Psych Appearance: grossly normal Speech and Movement: speech and movement normal Objective Labs 08/02/23 04:55 Labs: Laboratory Results - last 24 hr 08/02/23 04:55 Hgb 13.6 Hct 40.1 L PFSH Medical History Embryonal carcinoma Embryonal carcinoma PTSD (post-traumatic stress disorder) Easy bruisability Psoriasis Osteoarthritis Enlarged prostate Testicular cancer (~1978) HLD (hyperlipidemia) HTN (hypertension) KELLY (obstructive sleep apnea) Asthma Surgical History Hx of shoulder surgery H/O nasal septoplasty Hx of discectomy Hx of shoulder surgery History of repair of left rotator cuff History of repair of right rotator cuff Hx of tonsillectomy S/P radical unilateral orchiectomy (~1978) Hx of bilateral cataract extraction Social History household members: spouse Smoking Status: Former smoker alcohol intake: former Discharge Assessment & Plan Assessment and Plan Assessment: Stable status post right TKA Plan of Treatment: Flomax ordered for patient. We will remove Peña catheter and await voiding trial prior to d/c. If the patient is able to void on his own and pass physical therapy the patient can be discharged home today. 1) Continue multimodal pain management. Ice to the knee for additional pain control. Eliquis 2.5 mg twice daily x2 weeks to prevent blood clots. 2) Continue to work on range of motion strengthening with outpatient PT. Weightbearing as tolerated, progress activities as tolerated. 3) Remove the Raza wrap 48 hours after surgery. Keep Aquacel dressing underneath in place until postoperative follow-up office visit. Okay to shower over Aquacel dressing. No soaking or submerging the incision site and no topical ointments or creams to the incision site for approximately 4-6 weeks. Please call the office if dressing becomes wet, soiled, or saturated. 4) Follow-up as scheduled at [facility] in 2 weeks. Discharge Plan Discharge Plan Patient Disposition: Home Discharge orders & Medications Discharge Orders: Discharge (Order); Ordered 08/02/23 Ordered By: Daiana Carbajal Prescriptions: Continued allopurinol 100 mg tablet 1 tab PO BID PRN (Reason: Gout) colchicine 0.6 mg tablet 0.6 mg PO BID PRN (Reason: Gout Flare) atorvastatin 10 mg Tablet 10 mg PO BEDTIME lisinopril 20 mg Tablet 20 mg PO DAILY amlodipine 5 mg Tablet 5 mg PO DAILY tamsulosin 0.4 mg Capsule 0.4 mg PO BEDTIME albuterol 90 mcg/actuation Aerosol See Rx Instructions .ROUTE .COMPLEX PRN (Reason: asthma) Rx Instructions: prn for asthma Follow up/Referrals: Fanny Bender MD [Physician] - (Follow-up as scheduled for 2 week postop appointment) Yue Mena MD [Primary Care Provider] - Diet/Activity/Treatments Diet: Diet as Tolerated Activity: Weightbear as tolerated, ice 20 minutes an hour while awake. Work on knee range of motion full extension and flexion. Other treatments: Medications: -Eliquis 2.5 mg twice daily x2 weeks to prevent blood clots. -OTC Tylenol 500 mg 1 tablet every 4 hours as needed for pain/fever. Max 6 tablets per day. (take scheduled every 4-6 hours for the first few days to week after schedule to help stay on top of your pain) -Oxycodone 5 mg take 1-2 tablets (5-10mg) every 4 hours as needed for moderate- severe pain (narcotic pain medication). (maximum dose for very severe pain would be 3 pills (15mg) every 3 hours) -ondansetron 4mg - 1 tab every 8 hours as needed for nausea -As needed medications: -Ducolax and /or MiraLax as needed for constipation from narcotic pain medications. -Pepcid AC as needed for stomach upset (usually from aspirin or ibuprofen). Dressing/Wound care: -Remove the Raza wrap 48 hours after surgery. -Keep Aquacel dressing in place until postoperative follow-up office visit. -Okay to shower. Keep wound out of direct water stream. No soaking or submerging until all the scabs fall off (approximately 4-6 weeks). -No lotions, ointments, or scar creams directly to the incision until the wound is healed (4-6 weeks), -Please call the office if dressing becomes wet, soiled, or saturated. Activities: -Weight-bearing as tolerated. Use front wheeled walker, and progress to cane when safe. -Continue with home exercises as directed by your physical therapist. (work on getting your leg. knee fully straight and bending knee as well- motion after knee replacement is very important) -should have outpatient Physical Therapy visits set up to start within 1 week after surgery -Elevate if you have significant swelling in your lower leg. (A wedge pillow is easiest.) -Ice your incision as needed for pain/inflammation/swelling. Protect your skin with a folded pillowcase. -Incentive Spirometer (breathing device from hospital): 5-10xs every hour while awake for the first 1-2 weeks. Follow-up: -Follow-up with your surgeon or PA in the office in 10-14 days after surgery. -Follow-up with your surgeon 6 weeks postoperatively. Contact the office if you have any of the following: ? Painful swelling or numbness ? Unrelenting pain ? Fever (over 101?- it is normal to have a low grade fever for the first day or two following surgery) or chills ? Redness around the incisions ? Color changes ? Continuous bleeding or drainage from the incision (a small amount is expected) ? Excessive nausea or vomiting ? Difficulty breathing If you have an emergency that requires immediate attention such as shortness of breath or chest pain, call 911 or proceed to the nearest emergency room. [facility]: [phone] Pain Medications: It is the policy of [facility] that narcotic medications will only be refilled during office hours. Additionally, due to the alarming rate of narcotic pain medication abuse/dependence, it has become necessary for physician practices to closely manage patient use of prescription narcotic pain relievers, such as Vicodin ([place]), Percocet, and Oxycodone products. Narcotic pain management in the postoperative period may not exceed 6 weeks. If narcotic pain management is required beyond 90 days, then a referral to a Chronic Pain Specialist will be made. If a request for a medication prescription of refill has been made, the physician must review your chart prior to authorizing the request. Please be patient with office staff. If you call during patient hours, your call may not be returned until the end of the day. Skin/Wound/Dressing Care Report to your healthcare provider any signs of infection, such as:: chills, fever, night sweats, increased pain, unusual drainage and unusual redness Visit Report/Discharge Packet Instructions: DI for Knee Replacement, DI for Prescription Opioid Use Stand Alone Forms: Patient Portal/API Discharge Data Primary Care Provider: Yue Mena Attending Provider: Fanny Bender VTE Deep Vein Thrombosis/Pulmonary Embolism Present on Admission: No
[2023-08-02] MEDS: DOCUSATE 100 MG CAPSULE PO (08:37)
[2023-08-02] MEDS: APIXABAN 5 MG TABLET 2.5 MG PO (08:38)
[2023-08-02 08:40] VITALS: BP 144/72; PULSE 88
[2023-08-02] MEDS: lisinopriL 20 MG TABLET PO (08:40)
[2023-08-02] MEDS: AMLODIPINE 5 MG TABLET PO (08:41)
--- NOTE | 2023-08-02 09:00 | PT.IPTN ---
Current Diagnoses Unilateral primary osteoarthritis, right knee (08/01/23) Surgery Performed Operation Date: 08/01/23 10:45 Actual Procedures p Total Knee Arthroplasty - Robot(Right) - Fanny Bender MD Physical Therapy Treatment Note M2 PT-IP Current Condition Start: 08/01/23 16:43 Freq: NEEDED Status: Active Protocol: Document 08/01/23 15:55 AB (Rec: 08/01/23 16:56 AB [id number]) Physical Therapy Current Condition Current Condition Evaluation Date 08/01/23 Treatment Diagnosis s/p R TKA; difficulty in walking Onset Date 08/01/23 M3 PT-IP Subjective Start: 08/01/23 16:43 Freq: NEEDED Status: Active Protocol: Document 08/02/23 09:33 TS (Rec: 08/02/23 09:43 TS [id number]) Subjective Physical Therapy Visit Type Type Treatment Note Visit Start Time 09:00 Visit Stop Time 09:28 Number of 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 Therapy Pain Assessment Pain When Pain Assessed At Rest Pain Present Pain Present Pain Reported M4 PT-IP Mobility and Gait Start: 08/01/23 16:43 Freq: NEEDED Status: Active Protocol: Document 08/02/23 09:33 TS (Rec: 08/02/23 09:43 TS [id number]) PT-Bed Mobility Assessment Supine to Sit Supine to Sit Standby Assistance Scooting Scooting to Edge of Bed Standby Assistance PT-Transfer Assessment Sit to and From Stand Sit to and from Stand Standby Assistance,Use of Upper Extremities Equipment Transfer Assistive Device Gait Belt,Front Wheeled Walker Orthotic/Prosthetic Devices or Brace: No Comments Mobility Comments Supine to sit SBA with BUE support from a flat bed. STS with FWW SBA, pt demonstrates good carryover of sequencing. He ambulated in hallway ~150' SBA with step to gait, requires standing rest breaks due to pain. He performed steps x2 with FWW on platform step CGA, pt required cues for step sequencing. Spouse entered room after pt was resting in chair. Spouse performed donning of gait belt and was eudcated on stair and gait training. Pt was left in chair all needs met. Gait Assessment Gait Gait Assistance Required: Standby Assistance Distance (Feet) 150 Able to Maintain Weight Bearing Status Yes During Gait Assistive Devices Assistive Device Gait Belt,Front Wheeled Walker Orthotic/Prosthetic Devices or Brace: No Gait Deviations General Gait Pattern Antalgic,Decreased Stride Length,Decreased Feet Clearance Factors Limiting Gait Function Factors Limiting Gait Function Decreased Activity Tolerance, Decreased Strength,Difficulty Following Directions,Limited Range of Motion,Pain,Poor Balance,Poor Safety Awareness, Respiratory Distress Comments Gait Comments See mobility comments Stair Climbing Assessment Evaluation Level of Assist On Stairs Contact Guard Assistance,1 Person Assistance Devices Stair Climbing Assistive Devices Front Wheel Walker Technique/Endurance Stair Climbing Direction Ascend and Descend Stair Climbing Technique Step to Step Number of Steps Climbed 2 Comments Stair Climbing Comments See mobility comments PT-Balance Assessment Sitting Balance and Reactions Static Sitting Balance Ability Good Dynamic Sitting Balance Ability Good Standing Balance and Reactions Static Standing Balance Ability Fair Dynamic Standing Balance Ability Fair Device Used FWW M5 PT-IP Objective Assessments Start: 08/01/23 16:43 Freq: NEEDED Status: Active Protocol: Document 08/01/23 15:55 AB (Rec: 08/01/23 16:56 AB [id number]) Orientation Orientation/Cognition Level of Alertness Alert Orientation Name,Age Safety Awareness Decreased Safety Awareness Memory Description No Deficits Noted Comments pt alert but sleepy Gross Range of Motion Lower Extremity ROM Assessment Right Impaired Impairments R knee flexion: ~ 100 deg R knee extension: ~ 20 deg less to 0 Strength Lower Extremity Strength Assessment Left Impaired Hip 4/5 Knee 3+/5 Coordination Assessment Gross Coordination Gross Coordination WNL Sensation Assessment Sensation Gross Sensation WNL Muscle Tone Muscle Tone WNL Yes M6 PT-IP Treatment Start: 08/01/23 16:43 Freq: NEEDED Status: Active Protocol: Document 08/02/23 09:33 TS (Rec: 08/02/23 09:43 TS [id number]) Physical Therapy Treatment Education Education Provided Precautions,Weight Bearing Status,Post-Op Packet,Safety M7 PT-IP Assessment and Plan Start: 08/01/23 16:43 Freq: NEEDED Status: Active Protocol: Document 08/02/23 09:33 TS (Rec: 08/02/23 09:43 TS [id number]) PT Summary Assessment and Plan Potential Rehabilitation Potential Good Summary Impairments Pain,ROM,Strength,Balance, Coordination,Sensation,Tone, Cognition,Bed Mobility, Transfers,Gait,Activity Tolerance Progress Towards Goals Progressing Toward Goals Assessment Summary Josue is making good progress with his mobility. He is SBA for all bed mobility and STS with use of FWW. He progressed his gait to ~150'SBA with step to gait and use of FWW. He performed stairs with FWW x2 on platform step CGA, he had no buckling or LOB. Spouse was educated on gait belt, stair and gait training. PT is recommending home with assist and outpatient PT. Goals Bed Mobility Goal Independent Transfer Goal Independent,Front Wheeled Walker Gait Goal Independent,Front Wheel Walker Gait Distance 200 Other Goals improve transfers and ambulation using LRAD ~ 300 ft mod I up/down 1 step using FWW/LRAD mod I Days to Meet Goals 5 Frequency of Treatment Frequency Of Treatment Twice a Day Treatment Plan Physical Therapy Treatment Plan Bed Mobility Training,Transfer Training,Gait Training, Therapeutic Exercise,Balance Retraining,Post Op Education, Discharge Planning,Hot or Cold Pack,Neuromuscular Re-ed, Coordination Retraining,Manual Therapy Weight Bearing Status Weight Bearing Status Weight Bear as Tolerated Allowed Weight Bearing Amount (enter % RLE WBAT or #) (%) Recommendations To Nursing Amount of Assist Needed Standby Assistance Discharge Recommendations PT Discharge Recommendations Home with Assistance, Outpatient PT Transportation Needs at Discharge Private Vehicle
[2023-08-02 09:18] VITALS: BP 144/72; PULSE 62; RESP 16; TEMP 36.3; O2SAT 97
--- NOTE | 2023-08-02 10:14 | OT.IP.EVAL ---
Current Diagnoses Unilateral primary osteoarthritis, right knee (08/01/23) Surgery Performed Operation Date: 08/01/23 10:45 Actual Procedures p Total Knee Arthroplasty - Robot(Right) - Fanny Bender MD Past Medical History (Last Reviewed 08/01/23 @ 10:34 by Fanny Bender MD) Asthma Easy bruisability Embryonal carcinoma Embryonal carcinoma Enlarged prostate HLD (hyperlipidemia) HTN (hypertension) KELLY (obstructive sleep apnea) Osteoarthritis Psoriasis PTSD (post-traumatic stress disorder) Testicular cancer (~1978) Surgical History (Last Reviewed 08/01/23 @ 10:34 by Fanny Bender MD) H/O nasal septoplasty History of repair of left rotator cuff History of repair of right rotator cuff Hx of bilateral cataract extraction Hx of discectomy Hx of shoulder surgery Hx of shoulder surgery Hx of tonsillectomy S/P radical unilateral orchiectomy (~1978) Occupational Therapy Inpatient Evaluation/Re-Eval M1 PT/OT-IP Prior Functional Status Start: 08/02/23 10:26 Freq: NEEDED Status: Active Protocol: Document 08/02/23 10:26 [facility] (Rec: 08/02/23 10:39 [facility] [id number]) Medical Review Prior Functional Status Medical History Reviewed Yes Communication able to make needs known Mobility and Gait pt stated that he was independent with all mobilities and ambulation without AD Activities of Daily Living and IADL's Pt able to do his ADl and IADL needs but had pain. Social History Household Members spouse Living Arrangements House Number of Floors (Floors) One Floor Number of Stairs To Enter/Railing? 1 step to enter Home Environment High Toilet,Tub/Shower Home Equipment Front Wheel Walker,Four Wheel Walker,Straight Cane M2 OT-IP Current Condition Start: 08/02/23 10:26 Freq: Status: Active Protocol: Document 08/02/23 10:26 [facility] (Rec: 08/02/23 10:39 [facility] [id number]) Occupational Therapy Current Condition Current Condition Evaluation Date 08/02/23 Treatment Diagnosis S/P R TKA Diagnosis Onset Date 08/01/23 M3 OT- IP Subjective and Pain Start: 08/02/23 10:26 Freq: Status: Active Protocol: Document 08/02/23 10:26 [facility] (Rec: 08/02/23 10:39 [facility] [id number]) OT- Subjective Occupational Therapy Visit Type Type Initial Evaluation Visit Start Time 09:35 Visit Stop Time 10:14 Occupational Therapy Visit Comments Patient Comments Pt agreed to do a shower, pt's present for OT eval. Patient/Caregiver Goals To go home. OT Pain Assessment Pain When Pain Assessed At Rest Pain Present Pain Present Pain Reported Location Right Knee Intensity 6 Scale Used Numeric (0 - 10) M4 OT- IP ADL's Start: 08/02/23 10:26 Freq: Status: Active Protocol: Document 08/02/23 10:26 [facility] (Rec: 08/02/23 10:39 [facility] [id number]) OT RRN-Rywh-Avqclyn General Evaluation Self-Feeding Ability Independent OT ADL-Grooming General Evaluation Grooming Ability Independent OT ADL-Oral Care General Eval Oral Care Ability Independent OT ADL-Dressing General Eval Upper Body Dressing Ability Independent Lower Body Dressing Ability Minimal Assistance Areas Needing Assistance Shoes Comments OT Dressing Comments Educated pt on LB dressing equipment but pt able to comfortably bend over to sunita his socks. Educated pt not to cross his RLE over to twist his knee for ADL needs. OT ADL-Toileting Comments OT Toileting Comments Suggested pt take the urinal home. OT ADL-Bathing General Evaluation Bathing Ability Minimal Assistance,Moderate Assistance Areas Needing Assistance Wash/Dry Back,Wash/Dry Perineal Area Comments OT Bathing Comments Assist for his back and feet. Best for pt to get a tub bench for the tub shower. Pt aware and to sponge off initially at home. Able to go over care for bandage while showering. M5 OT- IP IADL's Start: 08/02/23 10:26 Freq: Status: Active Protocol: Document 08/02/23 10:26 [facility] (Rec: 08/02/23 10:39 [facility] [id number]) OT-Instrumental Activities of Daily Living Deficits IADL Deficits Identified Deficits Home Safety Awareness Awareness of Need for Assistance at Home Good Awareness Ability to Problem Solve Emergency Able to Problem Solve Situations Home Safety Comments Pt's to assist for needs as needed. Meal Preparation Meal Preparation Caregiver Provides Assist Eyelet Machine Operator Eyelet Machine Operator Caregiver Provides Assist M6 OT- IP Functional Cognition Start: 08/02/23 10:26 Freq: Status: Active Protocol: Document 08/02/23 10:26 [facility] (Rec: 08/02/23 10:39 [facility] [id number]) Cognitive Factors Limiting Selfcare Function Cognitive Ability Level of Alertness Alert Patient Orientation Name,Age,Birthday,Month,Date, Year,Day of Week,Place, Situation Attention Span Ability Capable of Focused Attention, Capable of Sustained Attention Ability to Follow Commands Able to Follow One Step Commands Safety Awareness Underestimates Need for Assistance Cognitive Comments Cognitive Assessment Comments Pt needing reminders not to twist his need and slow his descent when coming from standing to sitting. Educated pt's to use the gait belt to assist if needed. OT- Vision and Hearing OT- Hearing Assessment OT- Hearing Assessment WFL M7 OT- IP Mobility and Balance Start: 08/02/23 10:26 Freq: Status: Active Protocol: Document 08/02/23 10:26 [facility] (Rec: 08/02/23 10:39 [facility] [id number]) OT- Bed Mobility Assessment Sit to Supine Sit to Supine Assist Minimal Assistance OT-Transfer Assessment Sit to and From Stand Sit to and from Stand Contact Guard Assistance Transfers Transfer Ability Standby Assistance,Contact Guard Assistance Technique Transfer Destination Bed,Chair,Shower Stall Transfer Technique Stand Step Pivot Devices Transfer Assistive Devices Gait Belt,Front Wheeled Walker Comments Mobility Comments CGA to stand , SBA when up on his feet. CGA when steeping over the threshold of the shower. Went over car transfers with pt. OT- Balance Assessment Sitting Balance and Reactions Static Sitting Balance Ability Good Dynamic Sitting Balance Ability Good Standing Balance and Reactions Static Standing Balance Ability Good Dynamic Standing Balance Ability Fair M8 OT- IP Objective Assessments Start: 08/02/23 10:26 Freq: Status: Active Protocol: Document 08/02/23 10:26 [facility] (Rec: 08/02/23 10:39 [facility] [id number]) OT Gross Range of Motion Upper Extremity Range of Motion ROM Impairments WFL for need OT Strength Comments Strength Comments WFL for needs M9 OT- IP Assessment and Plan Start: 08/02/23 10:26 Freq: Status: Active Protocol: Document 08/02/23 10:26 [facility] (Rec: 08/02/23 10:39 [facility] [id number]) OT Summary Assessment and Plan Potential Rehabilitation Potential Excellent Analytic Complexity at Evaluation Low Summary OT Impairments Pain,Balance,Functional Mobility,Dressing,Toileting, Bathing,Shower Transfers Progress Towards Goals Progressing Toward Goals Assessment Summary Pt low complexity and main barriers are pain and transition when sitting down. Pt's present for caregiver training and able to comfortably assist for all needs. Pt to go home when medically stable. Pt complaining of being nauseous BP 131/65, nursing notified of request for pain and nausea medications. Goals Dressing Goal Independent Toileting Goal Independent Bathing Goal Standby Assistance Toilet Transfer Goal Independent Shower Transfer Goal Standby Assistance Days to Meet Goals 5 Frequency of Treatment Frequency Of Treatment Once a Day Treatment Plan OT Treatment Plan ADL Training,Functional Mobility,Patient/Family Education,Discharge Planning Discharge Recommendations OT Discharge Recommendations Home with Assistance, Outpatient PT Home Equipment Needs tub bench Transportation Needs at Discharge Private Vehicle
[2023-08-02] MEDS: ONDANSETRON 4 MG ODT PO (10:16)
--- NOTE | 2023-08-02 12:41 | CM.DANOTE ---
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 No History Provided By Patient,Medical Record Prior Living Arrangements House Household Members spouse Type of transporation used prior to Drives own vehicle admit Independent with ADL's Yes Is patient alert and oriented? Yes Barriers to Discharge No Comment Discharge home w/spouse, cleared by therapies for this plan. No needs from this CM team. Discharge Plan Home Transportation Arrangement Spouse Referrals Initiated None needed
== END 2023-08-02 10:50 | disposition home or self-care (01) ==
LOC: OR 08:53 → AC 08:58
PROVIDERS: PCP Internal Medicine; Referring Provider Internal Medicine; Visit Provider Orthopaedic Surgery Foot and Ankle Surgery
PROC: 0SRC0JZ Replacement of Right Knee Joint with Synthetic Substitute, Open Approach (ICD-10-PCS; CPT 27447; principal; 2023-08-01 10:45)
DX: M17.11 Unilateral primary osteoarthritis, right knee (principal); G89.18 Other acute postprocedural pain
CPT/HCPCS: 27447; 36415; 64450; 73560; 85014; 85018; 97116; 97162; 97165; 97530; 97535; C1776; C9290; J0171; J0690; J1100; J1170; J2250; J2405; J2704; J3010